=== PATIENT | male | born 1960 | race Caucasian/White ===

== ENCOUNTER 2020-07-09 01:16 | Inpatient (IN) ==
[2020-07-09] MEDS ORDERED: Naloxone 0.4 MG/ML INJ IVP PRN (03:43)
[2020-07-09] MEDS ORDERED: *HR* LORazepam 2 MG/ML VIAL IVP PRN ×3 (03:45)
[2020-07-09] MEDS ORDERED: Ringers Solution, Lactated 1,000 ML IVC SCH (03:45)
[2020-07-09 04:49] LABS: Basophils # 0.1 K/mcL (0.0-0.2); Basophils % 0.9 %; Eosinophils # 0.1 K/mcL (0.0-0.6); Hematocrit 40.2 % (37.5-50.1); Hemoglobin 12.7 g/dL (12.9-16.9); Immature Granulocytes % 0.4 % (0-4); Lymphocytes # 1.5 K/mcL (0.6-4.6); Lymphocytes % 18.8 %; Mean Corpuscular HGB Conc 31.6 g/dL (31.6-35.5); Mean Corpuscular Hemoglobin 30.2 pg (28.0-33.3); Mean Corpuscular Volume 95.5 fL (83.0-100.0); Mean Platelet Volume 9.9 fL (9.4-12.4); Monocytes # 1.3 K/mcL (0.0-1.3); Monocytes % 15.5 %; Neutrophils # 5.1 K/mcL (1.6-8.9); Platelet Count 238 K/mcL (140-400); Red Blood Count 4.21 M/mcL (4.19-5.50); Red Cell Distribution Width 13.1 % (11.5-14.5); Segmented Neutrophils % 63.4 %
[2020-07-09 05:08] LABS: Alanine Aminotransferase 15 Units/L (7-52); Albumin 3.7 g/dL (3.5-5.7); Albumin/Globulin Ratio 1.3 (1.1-2.2); Alkaline Phosphatase 65 Units/L (34-104); Aspartate Amino Transferase 15 Units/L (13-39); BUN/Creatinine Ratio 18 (6-26); Bilirubin,Total 0.7 mg/dL (0.3-1.0); Blood Urea Nitrogen 14 mg/dL (8-23); Calcium 8.6 mg/dL (8.6-10.3); Carbon Dioxide 27 mEq/L (23-29); Chloride 108 mEq/L (98-107); Globulin 2.8 g/dL (2.4-3.5); Glucose 108 mg/dL (70-105); Osmolality,Calculated 295 (280-300); Sodium 142 mEq/L (136-145); Total Protein 6.5 g/dL (6.4-8.9); eGFR For African Americans > 60 (> 60); eGFR For Non-African Americans > 60 (> 60)
[2020-07-09] MEDS: *HR* Heparin 5,000 UNIT/ML VIAL SQ SCH ×3 (07:48→21:03)
[2020-07-09] MEDS: Ringers Solution, Lactated 1,000 ML IVC SCH ×2 (15:22→21:05)
[2020-07-09] MEDS ORDERED: clonazePAM 0.5 MG TABLET PO PRN (20:31)
[2020-07-10 02:08] LABS: Basophils # 0.1 K/mcL (0.0-0.2); Basophils % 0.8 %; Eosinophils # 0.2 K/mcL (0.0-0.6); Eosinophils % 3.1 %; Hematocrit 37.3 % (37.5-50.1); Hemoglobin 11.8 g/dL (12.9-16.9); Immature Granulocytes % 0.1 % (0-4); Lymphocytes # 1.4 K/mcL (0.6-4.6); Lymphocytes % 18.1 %; Mean Corpuscular HGB Conc 31.6 g/dL (31.6-35.5); Mean Corpuscular Hemoglobin 30.3 pg (28.0-33.3); Mean Corpuscular Volume 95.9 fL (83.0-100.0); Mean Platelet Volume 10.2 fL (9.4-12.4); Monocytes # 1.2 K/mcL (0.0-1.3); Monocytes % 15.8 %; Neutrophils # 4.8 K/mcL (1.6-8.9); Platelet Count 210 K/mcL (140-400); Red Blood Count 3.89 M/mcL (4.19-5.50); Red Cell Distribution Width 13.2 % (11.5-14.5); Segmented Neutrophils % 62.1 %; White Blood Count 7.8 K/mcL (4.3-11.1)
[2020-07-10 02:28] LABS: BUN/Creatinine Ratio 12 (6-26); Blood Urea Nitrogen 10 mg/dL (8-23); Calcium 8.2 mg/dL (8.6-10.3); Carbon Dioxide 27 mEq/L (23-29); Chloride 107 mEq/L (98-107); Glucose 120 mg/dL (70-105); Osmolality,Calculated 290 (280-300); Potassium 3.5 mEq/L (3.5-5.1); Sodium 140 mEq/L (136-145); eGFR For African Americans > 60 (> 60); eGFR For Non-African Americans > 60 (> 60)
[2020-07-10] MEDS: Ringers Solution, Lactated 1,000 ML IVC SCH ×3 (03:40→03:43)
[2020-07-10] MEDS: *HR* Heparin 5,000 UNIT/ML VIAL SQ SCH (03:41)
[2020-07-10 08:32] VITALS: BP 109/65
== END 2020-07-10 10:15 | disposition home or self-care (01) | DRG 440 ==
LOC: 3ANU
PROVIDERS: ADMIT Internal Medicine; ATTEND Internal Medicine

== ENCOUNTER 2021-07-16 13:57 | Inpatient (IN) ==
[2021-07-16] MEDS ORDERED: Naloxone 0.4 MG/ML INJ IVP PRN (17:52)
[2021-07-16] MEDS ORDERED: *HR* LORazepam 2 MG/ML VIAL IVP PRN ×3 (19:10)
[2021-07-16] MEDS: Ibuprofen 600 MG TABLET PO PRN (19:34)
[2021-07-16] MEDS: 0.9 % Sodium Chloride 1,000 ML IVC SCH (20:07)
[2021-07-16] MEDS: clonazePAM 0.5 MG TABLET PO PRN (20:07)
[2021-07-16] MEDS: Pantoprazole 40 MG VIAL IVP SCH (20:07)
[2021-07-17] MEDS: Piperacillin/Tazobactam 3.375 GM in 0.9 % Sodium Chloride Mini Bag 100 ML IVPB SCH ×4 (00:51→23:45)
[2021-07-17] MEDS: Ibuprofen 600 MG TABLET PO PRN ×2 (04:36→21:17)
[2021-07-17] MEDS: Pantoprazole 40 MG VIAL IVP SCH ×2 (06:15→17:07)
[2021-07-17 06:38] LABS: Basophils % 0.5 %; Eosinophils # 0.9 K/mcL (0.0-0.6); Hematocrit 36.5 % (37.5-50.1); Hemoglobin 12.3 g/dL (12.9-16.9); Immature Granulocytes % 0.5 % (0-4); Lymphocytes % 11.6 %; Mean Corpuscular HGB Conc 33.7 g/dL (31.6-35.5); Mean Corpuscular Hemoglobin 30.7 pg (28.0-33.3); Monocytes # 1.3 K/mcL (0.0-1.3); Monocytes % 15.7 %; Platelet Count 177 K/mcL (140-400); Red Blood Count 4.01 M/mcL (4.19-5.50); Red Cell Distribution Width 12.8 % (11.5-14.5); Segmented Neutrophils % 60.7 %; White Blood Count 8.2 K/mcL (4.3-11.1)
[2021-07-17 06:58] LABS: Alanine Aminotransferase 127 Units/L (7-52); Albumin 2.9 g/dL (3.5-5.7); Albumin/Globulin Ratio 1.2 (1.1-2.2); Alkaline Phosphatase 234 Units/L (34-104); Aspartate Amino Transferase 39 Units/L (13-39); BUN/Creatinine Ratio 11 (6-26); Bilirubin,Total 4.5 mg/dL (0.3-1.0); Blood Urea Nitrogen 8 mg/dL (8-23); Calcium 8.1 mg/dL (8.6-10.3); Carbon Dioxide 24 mEq/L (23-29); Chloride 112 mEq/L (98-107); Globulin 2.5 g/dL (2.4-3.5); Glucose 94 mg/dL (70-105); Osmolality,Calculated 286 (280-300); Potassium 3.4 mEq/L (3.5-5.1); Sodium 139 mEq/L (136-145); Total Protein 5.4 g/dL (6.4-8.9); eGFR For African Americans > 60 (> 60); eGFR For Non-African Americans > 60 (> 60)
[2021-07-17] MEDS: 0.9 % Sodium Chloride 1,000 ML IVC SCH (07:53)
[2021-07-17] MEDS ORDERED: *HR* Succinylcholine 200 MG/10 ML VIAL IVP ONE (09:39)
[2021-07-17] MEDS ORDERED: Lidocaine HCL 4 ML Topical Solution (Laryng-O-Jet Kit Sterile Pak) TP ONE (09:39)
[2021-07-17] MEDS: Ondansetron 4 MG/2 ML VIAL IVP PRN (17:07)
[2021-07-17] MEDS: clonazePAM 0.5 MG TABLET PO PRN (17:08)
[2021-07-17] MEDS: Melatonin 3 MG TABLET PO PRN (21:20)
[2021-07-18] MEDS: Ibuprofen 600 MG TABLET PO PRN ×3 (05:20→23:34)
[2021-07-18] MEDS: Pantoprazole 40 MG VIAL IVP SCH ×2 (05:21→16:21)
[2021-07-18 06:10] LABS: Basophils # 0.1 K/mcL (0.0-0.2); Basophils % 0.9 %; Eosinophils # 0.4 K/mcL (0.0-0.6); Eosinophils % 2.9 %; Hematocrit 39.5 % (37.5-50.1); Hemoglobin 12.9 g/dL (12.9-16.9); Immature Granulocytes % 0.7 % (0-4); Lymphocytes # 1.6 K/mcL (0.6-4.6); Lymphocytes % 13.2 %; Mean Corpuscular HGB Conc 32.7 g/dL (31.6-35.5); Mean Corpuscular Hemoglobin 30.1 pg (28.0-33.3); Mean Corpuscular Volume 92.3 fL (83.0-100.0); Mean Platelet Volume 10.3 fL (9.4-12.4); Monocytes # 1.7 K/mcL (0.0-1.3); Monocytes % 14.2 %; Platelet Count 208 K/mcL (140-400); Red Blood Count 4.28 M/mcL (4.19-5.50); Red Cell Distribution Width 13.2 % (11.5-14.5); Segmented Neutrophils % 68.1 %; White Blood Count 12.1 K/mcL (4.3-11.1)
[2021-07-18 06:13] LABS: Neutrophils # 8.2 K/mcL (1.6-8.9)
[2021-07-18 06:21] LABS: INR 1.6; Prothrombin Time 18.1 Seconds (9.4-12.1)
[2021-07-18 06:29] LABS: Alanine Aminotransferase 136 Units/L (7-52); Albumin/Globulin Ratio 1.2 (1.1-2.2); Alkaline Phosphatase 296 Units/L (34-104); Aspartate Amino Transferase 65 Units/L (13-39); BUN/Creatinine Ratio 13 (6-26); Bilirubin,Total 4.5 mg/dL (0.3-1.0); Blood Urea Nitrogen 9 mg/dL (8-23); Calcium 8.3 mg/dL (8.6-10.3); Carbon Dioxide 25 mEq/L (23-29); Chloride 110 mEq/L (98-107); Globulin 2.6 g/dL (2.4-3.5); Glucose 92 mg/dL (70-105); Osmolality,Calculated 292 (280-300); Potassium 3.6 mEq/L (3.5-5.1); Sodium 142 mEq/L (136-145); Total Protein 5.6 g/dL (6.4-8.9); eGFR For African Americans > 60 (> 60); eGFR For Non-African Americans > 60 (> 60)
[2021-07-18] MEDS: Piperacillin/Tazobactam 3.375 GM in 0.9 % Sodium Chloride Mini Bag 100 ML IVPB SCH ×3 (07:17→23:34)
[2021-07-18] MEDS: clonazePAM 0.5 MG TABLET PO PRN (12:22)
[2021-07-18] MEDS: Thiamine (B-1) 100 MG TABLET PO SCH (12:22)
[2021-07-18] MEDS: Multivit/Ca/Min/Fe/FA 1 TAB TABLET PO SCH (12:22)
[2021-07-18] MEDS: Folic Acid 1 MG TABLET PO SCH (12:22)
[2021-07-18] MEDS ORDERED: Sennosides/Docusate Sodium TABLET PO ONE (14:38)
[2021-07-19] MEDS: clonazePAM 0.5 MG TABLET PO PRN (00:23)
[2021-07-19 02:22] LABS: Basophils # 0.1 K/mcL (0.0-0.2); Basophils % 0.9 %; Eosinophils # 2.9 K/mcL (0.0-0.6); Eosinophils % 24.4 %; Hematocrit 35.2 % (37.5-50.1); Hemoglobin 11.8 g/dL (12.9-16.9); Immature Granulocytes % 1.3 % (0-4); Lymphocytes # 1.7 K/mcL (0.6-4.6); Lymphocytes % 13.8 %; Mean Corpuscular HGB Conc 33.5 g/dL (31.6-35.5); Mean Corpuscular Hemoglobin 30.6 pg (28.0-33.3); Mean Corpuscular Volume 91.4 fL (83.0-100.0); Mean Platelet Volume 10.2 fL (9.4-12.4); Monocytes # 1.7 K/mcL (0.0-1.3); Monocytes % 13.8 %; Neutrophils # 5.5 K/mcL (1.6-8.9); Platelet Count 192 K/mcL (140-400); Red Blood Count 3.85 M/mcL (4.19-5.50); Red Cell Distribution Width 13.2 % (11.5-14.5); Segmented Neutrophils % 45.8 %
[2021-07-19 02:42] LABS: Alanine Aminotransferase 140 Units/L (7-52); Albumin 2.9 g/dL (3.5-5.7); Albumin/Globulin Ratio 1.2 (1.1-2.2); Alkaline Phosphatase 313 Units/L (34-104); Aspartate Amino Transferase 72 Units/L (13-39); BUN/Creatinine Ratio 12 (6-26); Bilirubin,Total 3.6 mg/dL (0.3-1.0); Blood Urea Nitrogen 9 mg/dL (8-23); Calcium 8.2 mg/dL (8.6-10.3); Carbon Dioxide 26 mEq/L (23-29); Chloride 109 mEq/L (98-107); Globulin 2.5 g/dL (2.4-3.5); Glucose 106 mg/dL (70-105); Osmolality,Calculated 291 (280-300); Potassium 3.2 mEq/L (3.5-5.1); Sodium 141 mEq/L (136-145); Total Protein 5.4 g/dL (6.4-8.9); eGFR For African Americans > 60 (> 60); eGFR For Non-African Americans > 60 (> 60)
[2021-07-19 03:03] LABS: Platelet Estimate Normal (Normal)
[2021-07-19 03:04] LABS: Reactive Lymphocytes Present (Not Present)
[2021-07-19] MEDS: Pantoprazole 40 MG VIAL IVP SCH ×2 (06:18→17:13)
[2021-07-19] MEDS: Multivit/Ca/Min/Fe/FA 1 TAB TABLET PO SCH (07:29)
[2021-07-19] MEDS: Thiamine (B-1) 100 MG TABLET PO SCH (07:29)
[2021-07-19] MEDS: Folic Acid 1 MG TABLET PO SCH (07:29)
[2021-07-19] MEDS: Piperacillin/Tazobactam 3.375 GM in 0.9 % Sodium Chloride Mini Bag 100 ML IVPB SCH ×3 (07:41→23:24)
[2021-07-19] MEDS ORDERED: Lidocaine -MPF 2% 5 ML VIAL ONE (08:03)
[2021-07-19] MEDS ORDERED: *HR* Succinylcholine 200 MG/10 ML VIAL IVP ONE (08:03)
[2021-07-19 18:31] LABS: INR 1.4; Prothrombin Time 15.7 Seconds (9.4-12.1)
[2021-07-19] MEDS: *HR* OxyCODONE Immed Rel 5 MG TABLET PO PRN (19:46)
[2021-07-19 19:57] LABS: Hepatitis B Surface Antigen Nonreactive (Nonreactive)
[2021-07-19 20:26] LABS: Hepatitis B Core IgM Nonreactive (Nonreactive)
[2021-07-19 20:27] LABS: Hepatitis C Virus Antibody Nonreactive (Nonreactive)
[2021-07-19 20:28] LABS: Hepatitis A Antibody IgM Nonreactive (Nonreactive)
[2021-07-19] MEDS: Doxycycline 100 MG CAPSULE PO SCH (21:57)
[2021-07-19] MEDS ORDERED: Acetaminophen 325 MG TABLET PO ONE (21:59)
[2021-07-19] MEDS ORDERED: Ketorolac 30 MG/ML VIAL IVP ONE (22:45)
[2021-07-20] MEDS: Pantoprazole 40 MG VIAL IVP SCH (05:16)
[2021-07-20] MEDS: Doxycycline 100 MG CAPSULE PO SCH ×2 (05:16→18:30)
[2021-07-20 05:43] LABS: Basophils # 0.2 K/mcL (0.0-0.2); Basophils % 1.4 %; Eosinophils # 4.5 K/mcL (0.0-0.6); Eosinophils % 29.7 %; Hematocrit 35.6 % (37.5-50.1); Hemoglobin 11.6 g/dL (12.9-16.9); Immature Granulocytes % 2.2 % (0-4); Lymphocytes # 1.8 K/mcL (0.6-4.6); Lymphocytes % 11.6 %; Mean Corpuscular HGB Conc 32.6 g/dL (31.6-35.5); Mean Corpuscular Hemoglobin 29.8 pg (28.0-33.3); Mean Corpuscular Volume 91.5 fL (83.0-100.0); Monocytes # 1.9 K/mcL (0.0-1.3); Monocytes % 12.3 %; Neutrophils # 6.5 K/mcL (1.6-8.9); Platelet Count 211 K/mcL (140-400); Red Blood Count 3.89 M/mcL (4.19-5.50); Red Cell Distribution Width 13.2 % (11.5-14.5); Segmented Neutrophils % 42.8 %; White Blood Count 15.2 K/mcL (4.3-11.1)
[2021-07-20 06:00] LABS: Albumin/Globulin Ratio 1.1 (1.1-2.2); Bilirubin,Direct 1.2 mg/dL (0.0-0.2); Bilirubin,Total 2.2 mg/dL (0.3-1.0); Globulin 2.7 g/dL (2.4-3.5); Total Protein 5.7 g/dL (6.4-8.9)
[2021-07-20 06:01] LABS: Alanine Aminotransferase 125 Units/L (7-52); Albumin/Globulin Ratio 1.1 (1.1-2.2); Alkaline Phosphatase 317 Units/L (34-104); Aspartate Amino Transferase 47 Units/L (13-39); BUN/Creatinine Ratio 8 (6-26); Bilirubin,Total 2.1 mg/dL (0.3-1.0); Blood Urea Nitrogen 6 mg/dL (8-23); Calcium 8.5 mg/dL (8.6-10.3); Carbon Dioxide 26 mEq/L (23-29); Chloride 107 mEq/L (98-107); Globulin 2.7 g/dL (2.4-3.5); Glucose 99 mg/dL (70-105); Osmolality,Calculated 288 (280-300); Potassium 3.3 mEq/L (3.5-5.1); Sodium 140 mEq/L (136-145); Total Protein 5.7 g/dL (6.4-8.9); eGFR For African Americans > 60 (> 60); eGFR For Non-African Americans > 60 (> 60)
[2021-07-20] MEDS: Thiamine (B-1) 100 MG TABLET PO SCH (07:36)
[2021-07-20] MEDS: Folic Acid 1 MG TABLET PO SCH (07:36)
[2021-07-20] MEDS: Multivit/Ca/Min/Fe/FA 1 TAB TABLET PO SCH (07:36)
[2021-07-20] MEDS: Piperacillin/Tazobactam 3.375 GM in 0.9 % Sodium Chloride Mini Bag 100 ML IVPB SCH ×2 (07:36→15:14)
[2021-07-20] MEDS: *HR* OxyCODONE Immed Rel 5 MG TABLET PO PRN ×2 (07:41→15:14)
[2021-07-20] MEDS: clonazePAM 0.5 MG TABLET PO PRN (15:14)
[2021-07-21] MEDS: Melatonin 3 MG TABLET PO PRN (00:03)
[2021-07-21] MEDS: *HR* OxyCODONE Immed Rel 5 MG TABLET PO PRN ×3 (00:03→14:11)
[2021-07-21] MEDS: Piperacillin/Tazobactam 3.375 GM in 0.9 % Sodium Chloride Mini Bag 100 ML IVPB SCH ×2 (00:08→07:54)
[2021-07-21] MEDS: Ondansetron 4 MG/2 ML VIAL IVP PRN ×2 (00:12→23:12)
[2021-07-21 01:30] LABS: Basophils # 0.3 K/mcL (0.0-0.2); Basophils % 1.6 %; Eosinophils # 5.7 K/mcL (0.0-0.6); Eosinophils % 30.7 %; Hematocrit 35.5 % (37.5-50.1); Hemoglobin 11.9 g/dL (12.9-16.9); Immature Granulocytes % 3.1 % (0-4); Lymphocytes % 10.8 %; Mean Corpuscular HGB Conc 33.5 g/dL (31.6-35.5); Mean Corpuscular Hemoglobin 30.5 pg (28.0-33.3); Mean Platelet Volume 9.8 fL (9.4-12.4); Platelet Count 222 K/mcL (140-400); Red Cell Distribution Width 13.6 % (11.5-14.5); Segmented Neutrophils % 42.8 %; White Blood Count 18.5 K/mcL (4.3-11.1)
[2021-07-21 01:33] LABS: Neutrophils # 7.9 K/mcL (1.6-8.9)
[2021-07-21 01:49] LABS: Alanine Aminotransferase 105 Units/L (7-52); Alkaline Phosphatase 296 Units/L (34-104); Aspartate Amino Transferase 43 Units/L (13-39); BUN/Creatinine Ratio 13 (6-26); Bilirubin,Total 1.7 mg/dL (0.3-1.0); Blood Urea Nitrogen 10 mg/dL (8-23); Calcium 8.1 mg/dL (8.6-10.3); Carbon Dioxide 23 mEq/L (23-29); Chloride 107 mEq/L (98-107); Glucose 100 mg/dL (70-105); Osmolality,Calculated 291 (280-300); Potassium 3.7 mEq/L (3.5-5.1); Sodium 141 mEq/L (136-145); eGFR For African Americans > 60 (> 60); eGFR For Non-African Americans > 60 (> 60)
[2021-07-21] MEDS: Doxycycline 100 MG CAPSULE PO SCH ×2 (06:28→17:28)
[2021-07-21] MEDS: Multivit/Ca/Min/Fe/FA 1 TAB TABLET PO SCH (07:55)
[2021-07-21] MEDS: Thiamine (B-1) 100 MG TABLET PO SCH (07:55)
[2021-07-21] MEDS: Folic Acid 1 MG TABLET PO SCH (07:55)
[2021-07-21] MEDS ORDERED: Ibuprofen 400 MG TABLET PO ONE (08:41)
[2021-07-21] MEDS: polyethylene glycoL 3350 17 GM POWD.PACK PO SCH (10:52)
[2021-07-21] MEDS: metroNIDAZOLE 500 MG TABLET PO SCH ×2 (15:45→20:26)
[2021-07-21] MEDS: clonazePAM 0.5 MG TABLET PO PRN (23:13)
[2021-07-22 05:38] LABS: Basophils # 0.3 K/mcL (0.0-0.2); Basophils % 1.5 %; Eosinophils % 40.8 %; Hemoglobin 13.1 g/dL (12.9-16.9); Immature Granulocytes % 2.5 % (0-4); Lymphocytes # 1.8 K/mcL (0.6-4.6); Lymphocytes % 8.6 %; Mean Corpuscular HGB Conc 33.6 g/dL (31.6-35.5); Mean Corpuscular Hemoglobin 31.3 pg (28.0-33.3); Mean Corpuscular Volume 93.1 fL (83.0-100.0); Mean Platelet Volume 9.9 fL (9.4-12.4); Monocytes # 2.1 K/mcL (0.0-1.3); Monocytes % 9.9 %; Neutrophils # 7.8 K/mcL (1.6-8.9); Platelet Count 259 K/mcL (140-400); Red Blood Count 4.19 M/mcL (4.19-5.50); Red Cell Distribution Width 13.8 % (11.5-14.5); Segmented Neutrophils % 36.7 %; White Blood Count 21.2 K/mcL (4.3-11.1)
[2021-07-22] MEDS: Doxycycline 100 MG CAPSULE PO SCH ×2 (05:42→18:04)
[2021-07-22 05:51] LABS: Alanine Aminotransferase 91 Units/L (7-52); Albumin 3.3 g/dL (3.5-5.7); Albumin/Globulin Ratio 1.1 (1.1-2.2); Alkaline Phosphatase 284 Units/L (34-104); Aspartate Amino Transferase 38 Units/L (13-39); BUN/Creatinine Ratio 15 (6-26); Bilirubin,Direct 0.7 mg/dL (0.0-0.2); Bilirubin,Indirect 0.8 mg/dL (0.0-1.0); Bilirubin,Total 1.5 mg/dL (0.3-1.0); Blood Urea Nitrogen 11 mg/dL (8-23); Calcium 8.7 mg/dL (8.6-10.3); Carbon Dioxide 26 mEq/L (23-29); Chloride 104 mEq/L (98-107); Glucose 115 mg/dL (70-105); Osmolality,Calculated 284 (280-300); Potassium 3.8 mEq/L (3.5-5.1); Sodium 137 mEq/L (136-145); Total Protein 6.3 g/dL (6.4-8.9); eGFR For African Americans > 60 (> 60); eGFR For Non-African Americans > 60 (> 60)
[2021-07-22 06:03] LABS: Eosinophils # 8.7 K/mcL (0.0-0.6)
[2021-07-22 06:09] LABS: Platelet Estimate Normal (Normal)
[2021-07-22] MEDS: Folic Acid 1 MG TABLET PO SCH (09:52)
[2021-07-22] MEDS: metroNIDAZOLE 500 MG TABLET PO SCH ×3 (09:52→20:21)
[2021-07-22] MEDS: Thiamine (B-1) 100 MG TABLET PO SCH (09:52)
[2021-07-22] MEDS: Ondansetron 4 MG/2 ML VIAL IVP PRN ×2 (10:19→18:37)
[2021-07-22] MEDS: polyethylene glycoL 3350 17 GM POWD.PACK PO SCH ×2 (11:15→14:17)
[2021-07-22] MEDS ORDERED: Ringers Solution, Lactated 1,000 ML IVC SCH (13:00)
[2021-07-22] MEDS ORDERED: *HR* Propofol 200 MG/20 ML VIAL IVP ONE (13:01)
[2021-07-22] MEDS ORDERED: Simethicone 40 MG/0.6 ML MLS IR ONE (13:11)
[2021-07-22] MEDS: Acetaminophen/Butalbital/CaffeineTABLET PO PRN ×2 (16:36→22:34)
[2021-07-22] MEDS: Multivit/Ca/Min/Fe/FA 1 TAB TABLET PO SCH (16:37)
[2021-07-22 19:45] LABS: Basophils # 0.3 K/mcL (0.0-0.2); Basophils % 1.4 %; Eosinophils % 42.5 %; Hemoglobin 12.9 g/dL (12.9-16.9); Lymphocytes # 1.9 K/mcL (0.6-4.6); Lymphocytes % 8.7 %; Mean Corpuscular HGB Conc 33.1 g/dL (31.6-35.5); Mean Corpuscular Hemoglobin 30.2 pg (28.0-33.3); Mean Corpuscular Volume 91.3 fL (83.0-100.0); Mean Platelet Volume 9.3 fL (9.4-12.4); Monocytes # 1.8 K/mcL (0.0-1.3); Monocytes % 8.2 %; Neutrophils # 7.9 K/mcL (1.6-8.9); Platelet Count 292 K/mcL (140-400); Red Blood Count 4.27 M/mcL (4.19-5.50); Red Cell Distribution Width 13.8 % (11.5-14.5); Segmented Neutrophils % 37.2 %; White Blood Count 21.3 K/mcL (4.3-11.1)
[2021-07-22 19:48] LABS: Eosinophils # 9.1 K/mcL (0.0-0.6)
[2021-07-22] MEDS: clonazePAM 0.5 MG TABLET PO PRN (20:22)
[2021-07-23] MEDS: Doxycycline 100 MG CAPSULE PO SCH ×2 (05:23→16:27)
[2021-07-23 05:34] LABS: Hemoglobin 13.4 g/dL (12.9-16.9); Mean Corpuscular HGB Conc 31.9 g/dL (31.6-35.5); Mean Corpuscular Hemoglobin 29.8 pg (28.0-33.3); Mean Corpuscular Volume 93.3 fL (83.0-100.0); Mean Platelet Volume 9.4 fL (9.4-12.4); Platelet Count 275 K/mcL (140-400); Red Cell Distribution Width 13.7 % (11.5-14.5); White Blood Count 18.1 K/mcL (4.3-11.1)
[2021-07-23 05:57] LABS: Alanine Aminotransferase 79 Units/L (7-52); Albumin 3.3 g/dL (3.5-5.7); Alkaline Phosphatase 257 Units/L (34-104); Aspartate Amino Transferase 32 Units/L (13-39); BUN/Creatinine Ratio 12 (6-26); Bilirubin,Total 1.4 mg/dL (0.3-1.0); Blood Urea Nitrogen 9 mg/dL (8-23); Calcium 8.9 mg/dL (8.6-10.3); Carbon Dioxide 28 mEq/L (23-29); Chloride 103 mEq/L (98-107); Globulin 3.2 g/dL (2.4-3.5); Glucose 102 mg/dL (70-105); Osmolality,Calculated 285 (280-300); Potassium 3.9 mEq/L (3.5-5.1); Sodium 138 mEq/L (136-145); Total Protein 6.5 g/dL (6.4-8.9); eGFR For African Americans > 60 (> 60); eGFR For Non-African Americans > 60 (> 60)
[2021-07-23 06:27] LABS: Eosinophils # 8.2 K/mcL (0.0-0.6); Lymphocytes # 1.1 K/mcL (0.6-4.6); Monocytes # 1.5 K/mcL (0.0-1.3); Neutrophils # 7.2 K/mcL (1.6-8.9); Platelet Estimate Normal (Normal)
[2021-07-23] MEDS: polyethylene glycoL 3350 17 GM POWD.PACK PO SCH (07:42)
[2021-07-23] MEDS: Folic Acid 1 MG TABLET PO SCH (07:42)
[2021-07-23] MEDS: metroNIDAZOLE 500 MG TABLET PO SCH ×3 (07:42→21:49)
[2021-07-23] MEDS: Thiamine (B-1) 100 MG TABLET PO SCH (07:43)
[2021-07-23 10:21] LABS: AFP Tumor Marker Non-Pregnant 2 ng/mL (0-9)
[2021-07-23] MEDS ORDERED: Ketorolac 30 MG/ML VIAL IVP PRN (12:34)
[2021-07-23 14:20] LABS: ANA IgG by ELISA NONE DETECTED (None Detected); F-Actin (sm muscle) Ab IgG 5 Units (0-19)
[2021-07-23 16:09] LABS: C-Reactive Protein 27 mg/L (Less than 10)
[2021-07-23] MEDS: *HR* OxyCODONE Immed Rel 5 MG TABLET PO PRN (16:26)
[2021-07-23] MEDS: Ondansetron 4 MG/2 ML VIAL IVP PRN (16:26)
[2021-07-23 16:27] LABS: Ferritin 392 ng/mL (20-250)
[2021-07-23] MEDS: Multivit/Ca/Min/Fe/FA 1 TAB TABLET PO SCH (16:27)
[2021-07-23] MEDS: clonazePAM 0.5 MG TABLET PO PRN ×2 (16:27→22:59)
[2021-07-23 17:08] LABS: HIV-1&2 Antibody & p24 Ag Nonreactive (Nonreactive)
[2021-07-23] MEDS ORDERED: Isovue-370 500 ML BOTTLE IVP ONE (17:35)
[2021-07-23 20:40] LABS: Adenovirus Not Detected (Not Detect); Bordetella Pertussis Not Detected (Not Detect); Chlamydophila pneumoniae Not Detected (Not Detect); Coronavirus 229E Not Detected (Not Detect); Coronavirus HKU1 Not Detected (Not Detect); Coronavirus NL63 Not Detected (Not Detect); Coronavirus OC43 Not Detected (Not Detect); Human Metapneumovirus Not Detected (Not Detect); Human Rhinovirus/Enterovirus Not Detected (Not Detect); Influenza A Subtype 2009 H1 Not Detected (Not Detect); Influenza B Not Detected (Not Detect); Mycoplasma pneumoniae Not Detected (Not Detect); Parainfluenza Virus 1 Not Detected (Not Detect); Parainfluenza Virus 2 Not Detected (Not Detect); Parainfluenza Virus 3 Not Detected (Not Detect); Parainfluenza Virus 4 Not Detected (Not Detect); Respiratory Syncytial Virus Not Detected (Not Detect)
[2021-07-23] MEDS ORDERED: Acetaminophen IV 1,000 MG/100 ML BAG IVPB ONE (21:15)
[2021-07-23 21:23] LABS: SARS-CoV-2 DETECTED (Not Detect)
[2021-07-24] MEDS: Doxycycline 100 MG CAPSULE PO SCH (05:54)
[2021-07-24 06:32] LABS: Basophils # 0.2 K/mcL (0.0-0.2); Basophils % 1.1 %; Eosinophils # 6.4 K/mcL (0.0-0.6); Eosinophils % 35.4 %; Hematocrit 43.2 % (37.5-50.1); Immature Granulocytes % 1.9 % (0-4); Lymphocytes # 1.8 K/mcL (0.6-4.6); Lymphocytes % 9.8 %; Mean Corpuscular HGB Conc 32.4 g/dL (31.6-35.5); Mean Corpuscular Volume 92.7 fL (83.0-100.0); Mean Platelet Volume 9.6 fL (9.4-12.4); Monocytes % 10.8 %; Neutrophils # 7.5 K/mcL (1.6-8.9); Platelet Count 331 K/mcL (140-400); Red Blood Count 4.66 M/mcL (4.19-5.50); Red Cell Distribution Width 13.9 % (11.5-14.5); White Blood Count 18.2 K/mcL (4.3-11.1)
[2021-07-24 06:58] LABS: Alanine Aminotransferase 66 Units/L (7-52); Albumin 3.4 g/dL (3.5-5.7); Albumin/Globulin Ratio 1.1 (1.1-2.2); Alkaline Phosphatase 220 Units/L (34-104); Aspartate Amino Transferase 39 Units/L (13-39); BUN/Creatinine Ratio 15 (6-26); Bilirubin,Total 1.3 mg/dL (0.3-1.0); Blood Urea Nitrogen 15 mg/dL (8-23); Calcium 8.5 mg/dL (8.6-10.3); Carbon Dioxide 23 mEq/L (23-29); Chloride 103 mEq/L (98-107); Globulin 3.2 g/dL (2.4-3.5); Glucose 102 mg/dL (70-105); Osmolality,Calculated 281 (280-300); Potassium 4.2 mEq/L (3.5-5.1); Sodium 135 mEq/L (136-145); Total Protein 6.6 g/dL (6.4-8.9); eGFR For African Americans > 60 (> 60); eGFR For Non-African Americans > 60 (> 60)
[2021-07-24 07:05] LABS: Thyroid Stimulating Hormone 1.451 mcIU/mL (0.340-5.600)
[2021-07-24] MEDS: Folic Acid 1 MG TABLET PO SCH (07:46)
[2021-07-24] MEDS: Thiamine (B-1) 100 MG TABLET PO SCH (07:46)
[2021-07-24] MEDS: metroNIDAZOLE 500 MG TABLET PO SCH ×3 (07:46→20:24)
[2021-07-24] MEDS: polyethylene glycoL 3350 17 GM POWD.PACK PO SCH (07:46)
[2021-07-24 08:50] LABS: ABG Base Excess 1 mEq/L (-2 to 3); ABG HCO3 24 mEq/L (21-27); ABG Oxygen Saturation 96 % (95-98); ABG PCO2 32 mmHg (35-45); ABG PH 7.49 pH Units (7.32-7.45); ABG PO2 72 mmHg (85-104); ABG TCO2 25 mEq/L (20-26)
[2021-07-24] MEDS: clonazePAM 0.5 MG TABLET PO PRN ×2 (08:59→20:24)
[2021-07-24] MEDS: Acetaminophen 325 MG TABLET PO PRN ×2 (08:59→20:23)
[2021-07-24 12:26] LABS: C-Reactive Protein 34 mg/L (Less than 10)
[2021-07-24] MEDS: Multivit/Ca/Min/Fe/FA 1 TAB TABLET PO SCH (12:47)
[2021-07-24 18:36] LABS: Epstein Barr Virus Qnt Source WHOLE BLOOD
[2021-07-24] MEDS: Melatonin 3 MG TABLET PO PRN (23:35)
[2021-07-25] MEDS: clonazePAM 0.5 MG TABLET PO PRN (03:35)
[2021-07-25 05:11] LABS: Cytomegalovirus DNA (PCR) NOT DETECTED
[2021-07-25 05:12] LABS: EBV Quant Interpretation DETECTED (Not Detected)
[2021-07-25 06:00] LABS: Basophils # 0.2 K/mcL (0.0-0.2); Basophils % 0.9 %; Eosinophils % 45.8 %; Hematocrit 39.3 % (37.5-50.1); Immature Granulocytes % 1.5 % (0-4); Lymphocytes # 2.7 K/mcL (0.6-4.6); Lymphocytes % 15.6 %; Mean Corpuscular HGB Conc 33.1 g/dL (31.6-35.5); Mean Corpuscular Hemoglobin 31.1 pg (28.0-33.3); Mean Platelet Volume 9.7 fL (9.4-12.4); Monocytes # 1.8 K/mcL (0.0-1.3); Monocytes % 10.1 %; Neutrophils # 4.6 K/mcL (1.6-8.9); Platelet Count 371 K/mcL (140-400); Red Blood Count 4.18 M/mcL (4.19-5.50); Red Cell Distribution Width 13.6 % (11.5-14.5); Segmented Neutrophils % 26.1 %; White Blood Count 17.5 K/mcL (4.3-11.1)
[2021-07-25] MEDS ORDERED: *HR* Enoxaparin 40 MG/0.4 ML SYRINGE SQ SCH (06:00)
[2021-07-25 06:20] LABS: Alanine Aminotransferase 56 Units/L (7-52); Albumin 3.3 g/dL (3.5-5.7); Alkaline Phosphatase 184 Units/L (34-104); Aspartate Amino Transferase 32 Units/L (13-39); BUN/Creatinine Ratio 24 (6-26); Bilirubin,Direct 0.4 mg/dL (0.0-0.2); Bilirubin,Indirect 0.7 mg/dL (0.0-1.0); Bilirubin,Total 1.1 mg/dL (0.3-1.0); Blood Urea Nitrogen 21 mg/dL (8-23); Calcium 8.7 mg/dL (8.6-10.3); Carbon Dioxide 25 mEq/L (23-29); Chloride 106 mEq/L (98-107); Globulin 3.2 g/dL (2.4-3.5); Glucose 105 mg/dL (70-105); Osmolality,Calculated 289 (280-300); Potassium 4.1 mEq/L (3.5-5.1); Sodium 138 mEq/L (136-145); Total Protein 6.5 g/dL (6.4-8.9); eGFR For African Americans > 60 (> 60); eGFR For Non-African Americans > 60 (> 60)
[2021-07-25 07:51] LABS: Platelet Estimate Normal (Normal)
[2021-07-25 08:04] LABS: C-Reactive Protein 49 mg/L (Less than 10)
[2021-07-25 08:08] VITALS: BP 104/68; PULSE 66; TEMP 98.1; O2SAT 95
[2021-07-25] MEDS: Folic Acid 1 MG TABLET PO SCH (08:28)
[2021-07-25] MEDS: Thiamine (B-1) 100 MG TABLET PO SCH (08:28)
[2021-07-25] MEDS: metroNIDAZOLE 500 MG TABLET PO SCH (08:28)
[2021-07-25] MEDS: polyethylene glycoL 3350 17 GM POWD.PACK PO SCH (10:30)
== END 2021-07-25 12:45 | disposition home or self-care (01) | DRG 871 ==
LOC: 3ANU → SUATTDRO 20:22
PROVIDERS: ADMIT Internal Medicine; ATTEND Internal Medicine
PROC: ENDOEBX (2021-07-22 14:50)